=== PATIENT | male | born 1950 | race Caucasian/White ===

== ENCOUNTER 2016-09-13 18:50 | Inpatient (IN) | payer OTHER ==
[~2016-09-13] VITALS: Ht 172.7 cm; Wt 59.1 kg
[2016-09-13 18:55] VITALS: BP_SYST 156
[2016-09-13] MEDS ORDERED: VANCOMYCIN HCL 1,000 MG in D5W 250 ML IV ONE (19:00)
[2016-09-13] MEDS ORDERED: NACL 0.9% 1,000 ML IV SCH (19:00)
[2016-09-13] MEDS ORDERED: MORPHINE 4 MG/ML INJ. SYRINGE IVP ONE (19:00)
[2016-09-13] MEDS ORDERED: ONDANSETRON HCL 4 MG/2 ML VIAL IVP ONE (19:00)
[2016-09-13] MEDS ORDERED: PIPERACILLIN/TAZO 3.38 GM in D5W 50 ML IV ONE (19:00)
[2016-09-13 19:40] LABS: INR 1.1 (0.80-1.20); PROTHROMBIN TIME 11.7 SECS (9.5-12.5)
[2016-09-13 19:42] LABS: WHITE BLOOD COUNT (AUTO) 7.5 K/uL (4.8-10.8)
[2016-09-13 19:43] LABS: BASOPHILS % (AUTO) 0.6 % (0.0-2.0); EOSINOPHILS % (AUTO) 1.1 % (0.0-4.0); HEMATOCRIT 39.2 % (36-54); HEMOGLOBIN 12.8 g/dL (14.0-18.0); LYMPHOCYTES % (AUTO) 24.7 % (20.5-51.5); MEAN CORPUSCULAR HEMOGLOBIN 30 pg (27-31); MEAN CORPUSCULAR HGB CONC 33 % (32-36); MEAN CORPUSCULAR VOLUME 92 fL (79.0-98.0); NEUTROPHILS % (AUTO) 64.6 % (40.0-70.0); PLATELET COUNT (AUTO) 203 K/uL (130-430); RED BLOOD CELL COUNT(AUTO) 4.28 MIL/uL (4.2-6.2); RED CELL DISTRIBUTION WIDTH 12.9 % (9.0-15.0)
[2016-09-13] MEDS ORDERED: PIPERACILLIN/TAZOBACTAM 3.375 GM/VIAL (ZOSYN) IV ONE (19:43)
[2016-09-13 19:44] LABS: EOSINOPHILS # (AUTO) 0.1 K/uL (0.0-0.4); LYMPHOCYTES # (AUTO) 1.8 K/uL (1.0-5.5); MONOCYTES # (AUTO) 0.7 K/uL (0.0-1.0); NEUTROPHILS # (AUTO) 4.9 K/uL (1.8-7.7)
[2016-09-13] MEDS ORDERED: VANCOMYCIN HCL 1000 MG/VIAL IV ONE (19:45)
[2016-09-13 19:49] LABS: ALBUMIN 3.5 g/dL (3.4-4.8); CALCIUM 8.9 mg/dL (8.4-11.0); CREATININE 1.32 mg/dL (0.55-1.30); POTASSIUM 3.6 mmol/L (3.5-5.1); TOTAL BILIRUBIN 0.3 mg/dL (0.0-1.0); TOTAL PROTEIN, SERUM 7.5 g/dL (6.4-8.3)
[2016-09-13] MEDS ORDERED: LEVO500T20 PO (20:03)
[2016-09-13 20:27] LABS: BILIRUBIN,URINE NEGATIVE (NEGATIVE); BLOOD, URINE NEGATIVE (NEGATIVE); CLARITY/URINE CLEAR (CLEAR); COLOR,URINE YELLOW (YELLOW); GLUCOSE,URINE NEGATIVE (NEGATIVE); KETONES,URINE NEGATIVE (NEGATIVE); LEUKOCYTE ESTERASE ,URINE NEGATIVE (NEGATIVE); NITRITE, URINE NEGATIVE (NEGATIVE); PROTEIN URINE NEGATIVE (NEGATIVE); UROBILINOGEN,URINE 0.2 (0.2-1.0)
[2016-09-13] MEDS ORDERED: ONDANSETRON HCL 4 MG/2 ML VIAL IVP PRN (22:30)
[2016-09-13] MEDS ORDERED: LEVO75TA7 PO (22:36)
[2016-09-13 23:01] VITALS: BP_SYST 133
[2016-09-14] VITALS: BP_SYST 101
[2016-09-14] MEDS ORDERED: PIPERACILLIN/TAZOBACTAM 3.375 GM/VIAL (ZOSYN) IV ONE (00:36)
[2016-09-14] MEDS: PIPERACILLIN/TAZO 3.375 GM in NS 50 ML IV SCH ×2 (01:22→08:37)
[2016-09-14 04:00] VITALS: BP_SYST 108
[2016-09-14] MEDS: LEVOFLOXACIN 500 MG/D5W 100 ML IV SCH (08:37)
[2016-09-14 11:28] VITALS: BP_SYST 110
[2016-09-14] MEDS: CLINDAMYCIN 600 MG in D5W 50 ML IV SCH ×3 (14:13→23:15)
[2016-09-14 15:23] VITALS: BP_SYST 107
[2016-09-14 19:30] VITALS: BP_SYST 113
[2016-09-14] MEDS: MORPHINE 2 MG/ML INJ. SYRINGE IVP PRN (20:07)
[2016-09-14 23:46] VITALS: BP_SYST 91
[2016-09-15 04:30] VITALS: BP_SYST 100
[2016-09-15] MEDS: CLINDAMYCIN 600 MG in D5W 50 ML IV SCH ×3 (05:07→17:54)
[2016-09-15 08:00] VITALS: BP_SYST 99
[2016-09-15] MEDS: LEVOFLOXACIN 500 MG/D5W 100 ML IV SCH (09:20)
[2016-09-15 12:00] VITALS: BP_SYST 100
[2016-09-15 16:00] VITALS: BP_SYST 103
[2016-09-15 19:30] VITALS: BP_SYST 116
[2016-09-15] MEDS: MORPHINE 2 MG/ML INJ. SYRINGE IVP PRN (23:00)
[2016-09-16 00:13] VITALS: BP_SYST 97
[2016-09-16] MEDS: CLINDAMYCIN 600 MG in D5W 50 ML IV SCH ×5 (01:33→23:55)
[2016-09-16 06:05] VITALS: BP_SYST 104
[2016-09-16] MEDS: LEVOTHYROXINE SODIUM 0.075 MG TABLET PO SCH (06:49)
[2016-09-16 08:00] VITALS: BP_SYST 125
[2016-09-16] MEDS: LEVOFLOXACIN 500 MG/D5W 100 ML IV SCH (08:58)
[2016-09-16 10:16] LABS: CALCIUM 9.1 mg/dL (8.4-11.0); CREATININE 1.2 mg/dL (0.55-1.30); POTASSIUM 3.9 mmol/L (3.5-5.1)
[2016-09-16] MEDS ORDERED: LR 1,000 ML IV ONE (12:35)
[2016-09-16] MEDS ORDERED: DIPHENHYDRAMINE INJ 50 MG/ML VIAL IVP PRN (12:45)
[2016-09-16] MEDS ORDERED: fentaNYL CITRATE/PF 100 MCG/2 ML AMP IVP PRN (12:45)
[2016-09-16] MEDS ORDERED: ePHEDrine sulfate 50 MG/ML VIAL IVP PRN (12:45)
[2016-09-16] MEDS ORDERED: NALOXONE HCL 0.4 MG/ML AMP (NARCAN) IVP PRN (12:45)
[2016-09-16] MEDS ORDERED: ONDANSETRON HCL 4 MG/2 ML VIAL IVP PRN (12:45)
[2016-09-16] MEDS ORDERED: NALBUPHINE HCL 10 MG/ML AMP IVP PRN (12:45)
[2016-09-16] MEDS ORDERED: fentaNYL CITRATE/PF 100 MCG/2 ML AMP ONE ×2 (13:23→14:00)
[2016-09-16] MEDS ORDERED: KETOROLAC TROMETHAMINE 30 MG VIAL ONE (14:00)
[2016-09-16] MEDS ORDERED: MIDAZOLAM HCL 5 MG/5 ML VIAL ONE (14:00)
[2016-09-16] MEDS ORDERED: SEVOFLURANE 15 MIN GAS INH ONE (14:00)
[2016-09-16] MEDS ORDERED: PROPOFOL 200MG/ 20ML VIAL (DIPRIVAN) IV ONE (14:00)
[2016-09-16] MEDS ORDERED: CEFAZOLIN 1 GM IVPB PREMIX 50 ML IV ONE (14:00)
[2016-09-16] MEDS ORDERED: NS IRRIG SOLN 1000 ML IR ONE (14:00)
[2016-09-16] MEDS ORDERED: LR 1,000 ML IV.SOLN IV ONE (14:00)
[2016-09-16] MEDS ORDERED: METOCLOPRAMIDE HCL 10 MG/2 ML VIAL ONE (14:00)
[2016-09-16 14:03] VITALS: BP_SYST 138
[2016-09-16 16:00] VITALS: BP_SYST 113
[2016-09-16 19:45] VITALS: BP_SYST 116
[2016-09-16] MEDS: MORPHINE 2 MG/ML INJ. SYRINGE IVP PRN (23:57)
[2016-09-17 00:13] LABS: CHLAMYDIA TRACHOMATIS NAA Negative (Negative); NEISSERIA GONORRHOEAE NAA Negative (Negative)
[2016-09-17 01:11] VITALS: BP_SYST 109
[2016-09-17 04:00] VITALS: BP_SYST 110
[2016-09-17] MEDS: CLINDAMYCIN 600 MG in D5W 50 ML IV SCH ×2 (05:28→12:49)
[2016-09-17] MEDS: MORPHINE 2 MG/ML INJ. SYRINGE IVP PRN (05:36)
[2016-09-17] MEDS: LEVOTHYROXINE SODIUM 0.075 MG TABLET PO SCH (06:26)
[2016-09-17 08:00] VITALS: BP_SYST 97
[2016-09-17] MEDS: LEVOFLOXACIN 500 MG/D5W 100 ML IV SCH (08:39)
[2016-09-17] MEDS ORDERED: MAGNESIUM CITRATE 300 ML ORAL SOLUTION PO ONE (10:45)
[2016-09-17 13:21] VITALS: BP_SYST 105
[2016-09-17 15:02] VITALS: BP_SYST 97
== END 2016-09-17 15:30 | disposition home or self-care (01) | DRG 711 ==
LOC: SED 18:50 → SMU 22:31
PROVIDERS: ADMIT Internal Medicine Hospice and Palliative Medicine; ATTEND Internal Medicine Hospice and Palliative Medicine
PROC: 0VBF0ZZ Excision of Right Spermatic Cord, Open Approach (ICD-10-PCS; principal; 2016-09-16 12:00)
DX: N43.1 Infected hydrocele (principal); N13.8 Other obstructive and reflux uropathy; N45.2 Orchitis; E03.9 Hypothyroidism, unspecified; N40.1 Benign prostatic hyperplasia with lower urinary tract symptoms; I10 Essential (primary) hypertension; Z87.11 Personal history of peptic ulcer disease; Z79.899 Other long term (current) drug therapy
CPT/HCPCS: 36415; 71010; 76870-TC; 80048; 80053; 81003; 83605; 85025; 85610-TC; 85730-TC; 87040-TC; 87070-TC; 87075-TC; 87081; 87086; 87491; 87591; 88302; 93005; 94010; 96365; 96366; 96367; 96375; 99285; J0690; J1885; J1956; J2250; J2270; J2405; J2543; J2704; J2765; J3010; J3370; J3490; J7030; J7050; J7060; J7120

== ENCOUNTER 2016-10-02 09:51 | Emergency (ER) | payer OTHER ==
[~2016-10-02] VITALS: Ht 172.7 cm; Wt 63.5 kg
[~2016-10-02 09:51] MED LIST: LEVO75TA7 PO
[2016-10-02 09:56] VITALS: BP_SYST 139
--- NOTE | 2016-10-02 09:59 | NUR ---
AMBULATED TO BED 5
--- NOTE | 2016-10-02 10:02 | NUR ---
Patient brought in by with chief complaint of burning and pain during urination.Patient is awake,alert, and oriented x 4 able to verbalize needs. He states, "It zuluaga and is painful when I pee." No other complaints/injury per patient, none noted.
--- NOTE | 2016-10-02 10:05 | NUR ---
Dr. Laughlin at bedside examining patient. New orders recieved.
[2016-10-02 10:24] LABS: BILIRUBIN,URINE NEGATIVE (NEGATIVE); BLOOD, URINE 3+ (NEGATIVE); CLARITY/URINE HAZY (CLEAR); COLOR,URINE YELLOW (YELLOW); GLUCOSE,URINE NEGATIVE (NEGATIVE); KETONES,URINE NEGATIVE (NEGATIVE); LEUKOCYTE ESTERASE ,URINE 3+ (NEGATIVE); NITRITE, URINE NEGATIVE (NEGATIVE); PROTEIN URINE 2+ (NEGATIVE); UROBILINOGEN,URINE 0.2 (0.2-1.0)
[2016-10-02 10:31] LABS: BACTERIA,URINE FEW /HPF (None Seen); WBC,URINE 50-80 /HPF (0-3)
[2016-10-02 10:32] LABS: MUCUS,URINE None Seen /LPF (None Seen)
[2016-10-02 12:04] VITALS: BP_SYST 121
--- NOTE | 2016-10-02 12:05 | NUR ---
Patient given written and verbal discharge instructions and verbalizes understanding. ER MD discussed with patient the results and treatment provided. Given copies of tests performed in ER. Patient in stable condition. ID arm band removed. IV catheter removed intact and dressing applied, no active bleeding. Rx of macobid given. Patient educated on pain management and to follow up with PMD. Pain Scale 0/10. Opportunity for questions provided and answered.
--- NOTE | 2016-10-04 16:39 | NUR ---
Final C & S report shows E. coli ESBL which is to macrobid as previously prescribed. No further action indicated.
== END 2016-10-02 12:05 | disposition home or self-care (01) ==
LOC: SED 09:51
DX: N39.0 Urinary tract infection, site not specified (principal); R31.9 Hematuria, unspecified; R03.0 Elevated blood-pressure reading, without diagnosis of hypertension
CPT/HCPCS: 81000-TC; 87086; 87186-TC; 99284